=== PATIENT | male | born 1990 | race Caucasian/White ===

== ENCOUNTER 2024-05-14 14:20 | Emergency (ER) | payer OTHER ==
[2024-05-14] MEDS ORDERED: HYDROcodone/Acetaminophen 5/325 mg Tablet ONE (14:56)
== END 2024-05-14 15:01 | disposition home or self-care (01) ==
LOC: ERS 14:20
DX: K08.89 Other specified disorders of teeth and supporting structures (principal)
CPT/HCPCS: 99282